=== PATIENT | male | born 1980 | race Two or more races ===

== ENCOUNTER 2018-12-19 13:47 | Emergency (ER) | payer MEDICAID ==
[~2018-12-19] VITALS: Ht 180.3 cm; Wt 123.4 kg
[2018-12-19 14:51] VITALS: BP 113/74
== END 2018-12-19 15:31 | disposition home or self-care (01) ==
LOC: ER 13:55
DX: J01.90 Acute sinusitis, unspecified (principal); J06.9 Acute upper respiratory infection, unspecified

== ENCOUNTER 2022-04-15 11:10 | Emergency (ER) | payer MEDICAID, OTHER ==
[~2022-04-15] VITALS: Ht 180.3 cm; Wt 115.5 kg
[2022-04-15] MEDS ORDERED: LISINOPRIL 20 MG TAB PO ONE (12:00)
[2022-04-15] MEDS ORDERED: LISI20TA28 PO (12:25)
[2022-04-15 13:11] VITALS: BP 176/110
[2022-04-16] MEDS ORDERED: CLON0.2D6 PO (11:32)
== END 2022-04-15 13:13 | disposition home or self-care (01) ==
LOC: ER 11:10
DX: I10 Essential (primary) hypertension (principal)

== ENCOUNTER 2022-04-16 08:54 | Emergency (ER) | payer MEDICAID, OTHER ==
[~2022-04-16] VITALS: Ht 180.3 cm; Wt 123.0 kg
[~2022-04-16 08:54] MED LIST: LISI20TA28 PO
[2022-04-16] MEDS ORDERED: cloNIDine HCL 0.1 MG TAB PO ONE (09:00)
[2022-04-16 09:15] VITALS: BP 172/104
[2022-04-16 09:33] LABS: Basophils # (auto) 0.1 10 ^3/uL (0-0.2); Basophils % (auto) 1.8 % (0.0-2.0); Eosinophils # (auto) 0.2 10 ^3/uL (0-0.8); Eosinophils % (auto) 3.6 % (0.0-7.0); Hematocrit 40.2 % (41.0-53.0); Hemoglobin 13.4 g/dL (13.5-17.5); Lymphocytes # (auto) 2.6 10 ^3/uL (0.4-5.4); Lymphocytes % (auto) 39.2 % (10.0-50.0); Mean Corpuscular Hemoglobin 28.3 pg (28.0-32.0); Mean Corpuscular Hgb Conc. 33.4 g/dL (32.0-36.0); Monocytes # (auto) 0.6 10 ^3/uL (0-1.3); Monocytes % (auto) 8.5 % (0.0-12.0); Neutrophils # (auto) 3.2 10 ^3/uL (1.6-8.6); Neutrophils % (auto) 46.9 % (37.0-80.0); Nucleated Red Blood Cells % 0.1 %; Red Blood Cells 4.73 10^6/uL (4.5-5.90); Red Cell Distribution Width 14.3 % (11.8-14.3); White Blood Cell 6.7 10^3/uL (4.4-10.8)
[2022-04-16 09:47] LABS: Albumin 3.9 g/dL (3.4-5.0); Calcium 9.3 mg/dL (8.5-10.1); Potassium 3.8 mmol/L (3.5-5.1)
[2022-04-16 09:50] LABS: BUN/Creatinine Ratio 12.8; Bilirubin, Total 0.5 mg/dL (0.2-1.0); Total Protein 8.1 g/dL (6.4-8.2)
[2022-04-16] MEDS ORDERED: CLON0.2D6 PO (11:32)
== END 2022-04-16 15:31 | disposition home or self-care (01) ==
LOC: ER 08:54
DX: I10 Essential (primary) hypertension (principal)
CPT/HCPCS: 36415; 80053; 84484; 85025